=== PATIENT | male | born 1995 | race Hispanic/Latino ===

== ENCOUNTER 2023-05-31 13:57 | Emergency (ER) | payer SELFPAY ==
[2023-05-31] MEDS ORDERED: Proparacaine 0.5% Opth 15 ML BOT ONE (16:00)
[2023-05-31] MEDS ORDERED: Fluorescein Opthalmic Strip ONE (16:05)
== END 2023-05-31 16:32 | disposition home or self-care (01) ==
LOC: ERS 13:57
DX: H10.9 Unspecified conjunctivitis (principal)
CPT/HCPCS: 99283